=== PATIENT | female | born 2000 | race Caucasian/White ===

== ENCOUNTER 2020-08-13 23:54 | Emergency (ER) | payer MEDICAID, SELFPAY ==
[2020-08-14 00:03] VITALS: BP 130/89; PULSE 87; RESP 16; TEMP 36.8; O2SAT 99
[2020-08-14 00:56] LABS: Alanine Aminotransferase 15 U/L (4-35); Albumin Level 3.8 g/dL (3.5-5.1); Alkaline Phosphatase 69 U/L (38-126); Anion Gap 7 mmol/L (8-16); Aspartate Amino Transferase 19 U/L (14-36); Bilirubin,Total 0.2 mg/dL (0.2-1.3); Blood Urea Nitrogen 9 mg/dL (7-17); Calcium 9.2 mg/dL (8.4-10.2); Carbon Dioxide 24 mmol/L (22-30); Chloride 105 mmol/L (98-107); Estimated Glomerular Filt Rate > 60; Glucose 90 mg/dL (65-105); Potassium 3.8 mmol/L (3.4-5.0); Sodium 136 mmol/L (137-145)
[2020-08-14 01:07] LABS: Basophils Percent Auto 0.2 % (0.2-1.2); Eosinophils Absolute Auto 0.1 K/mm3 (0-0.3); Eosinophils Percent Auto 1.2 % (0-4.4); Hematocrit 37.9 % (37.0-47.0); Immature Granulocyte Absolute 0.03 K/mm3 (0.00-0.031); Immature Granulocyte Percent A 0.3 % (0-0.5); Lymphocytes Absolute Auto 2.68 K/mm3 (0.9-3.2); Lymphocytes Percent Auto 28.4 % (18.3-44.2); Mean Corpuscular HGB Conc 34.3 g/dl (32-36); Mean Corpuscular Hemoglobin 31.4 pg (26-34); Mean Corpuscular Volume 91.5 fl (80-100); Mean Platelet Volume 10.5 fl (7.4-10.4); Monocytes Absolute Auto 0.6 K/mm3 (0.1-0.6); Monocytes Percent Auto 5.9 % (2.6-8.5); Neutrophils Absolute Auto 6.1 K/mm3 (1.3-6.7); Platelet Count Result 242 k/mm3 (150-375); Red Blood Count 4.14 M/mm3 (4.2-5.4); Red Cell Distribution Width 12.8 % (11.5-14.5); White Blood Count 9.5 K/mm3 (4.5-10.0)
[2020-08-14 01:51] LABS: Add Urine Microscopic? NO; Appearance Urine Clear (Clear); Bilirubin Urine Negative (Negative); Blood Urine Negative (Negative); Color Urine Yellow (Yellow); Glucose Urine UA Negative (Negative); Ketones Urine Negative (Negative); Leukocyte Esterase Ur Negative LEU/UL (Negative); Nitrate Urine Negative (Negative); Protein Urine Negative (Negative); Specific Grav Ur 1.023 (1.001-1.035); Urobilinogen Urine Negative mg/dL (<2.0)
--- NOTE | 2020-08-14 02:30 | ED.FEMALEGU ---
HPI - Female Genitourinary General Chief complaint: Vaginal Bleeding Stated complaint: preg, vag bleeding, abd pain Time Seen by Provider: 08/14/20 00:41 History of Present Illness HPI Narrative: Patient is a 20-year-old female who is a G1, P0 who presents to the ER with pain behind her umbilicus and some slight vaginal bleeding beginning this evening. Reports she is 14 weeks . She had received care in [place] and had genetic screening as well as ultrasounds that showed a normal IUP. She reports she just moved here and has yet to establish care. Reports no previous complications in her . She does report that she had had sexual intercourse this evening prior to the bleeding. Related Data Home Medications Medication Instructions Recorded Confirmed famotidine 20 mg PO DAILY 08/14/20 08/14/20 levothyroxine 100 mcg PO DAILY 08/14/20 08/14/20 Allergies Allergy/AdvReac Type Severity Reaction Status Date / Time amoxicillin [From Amoxil] Allergy Hives Verified 08/14/20 00:07 Review of Systems Review of Systems: All systems reviewed & are unremarkable except as noted in HPI and below Constitutional: Constitutional: Denies chills Comments: No fevers Gastrointestinal: Gastrointestinal: Reports abdominal pain, Denies nausea and Denies vomiting Genitourinary: Genitourinary: Reports abnormal vaginal bleeding, Denies dysuria and Denies vaginal discharge Musculoskeletal: Musculoskeletal: Denies back pain PMFSH Past Medical History Medical History (Updated 08/14/20 @ 03:34 by Thom Matthews MD) Healthy female adult Surgical History Surgical History (Updated 08/14/20 @ 02:30 by Thom Matthews MD) History of tonsillectomy Social History Social History (Updated 08/14/20 @ 02:30 by Thom Matthews MD) Smoking status: Never smoker Exam Narrative: Exam Narrative: GENERAL: Well-appearing, well-nourished, and in no acute distress. HEAD: Normocephalic, atraumatic. CHEST: Clear to auscultation. No respiratory distress. HEART: Regular rate and rhythm. Normal peripheral pulses. ABDOMEN: Soft, nontender, nondistended. : Normal-appearing external genitalia, no vaginal bleeding within the vaginal vault, scant discharge, normal-appearing cervical os and cervix that is closed. No tenderness. EXTREMITIES: Normal range of motion. No edema. SKIN: Warm, dry, no rash. NEURO: Alert and oriented x3. Course Course Emergency Course: Patient with dopplerable heart tones. Unremarkable pelvic exam. Bleeding likely related to sexual intercourse earlier in the day. Discussed case with on-call OB who recommends close follow-up. Patient verbalized understanding. Vital Signs Vital signs: Vital Signs Temperature 98.3 F 08/14/20 00:03 Pulse Rate 87 08/14/20 00:03 Respiratory Rate 16 08/14/20 00:03 Blood Pressure 130/89 08/14/20 00:03 Pulse Oximetry 99 08/14/20 00:03 Temperature 98.3 F 08/14/20 00:03 Pulse Rate 87 08/14/20 00:03 Respiratory Rate 16 08/14/20 00:03 Blood Pressure 130/89 08/14/20 00:03 Pulse Oximetry 99 08/14/20 00:03 MDM - Female Genitourinary Lab Data Result diagrams: 08/14/20 00:33 08/14/20 00:33 Labs: Lab Results 08/14/20 08/14/20 08/14/20 Range/Units 00:33 00:33 01:17 WBC 9.5 (4.5-10.0) K/mm3 RBC 4.14 L (4.2-5.4) M/mm3 Hgb 13.0 (12.0-15.0) g/dL Hct 37.9 (37.0-47.0) % MCV 91.5 (80-100) fl MCH 31.4 (26-34) pg MCHC 34.3 (32-36) g/dl RDW 12.8 (11.5-14.5) % Plt Count 242 (150-375) k/mm3 MPV 10.5 H (7.4-10.4) fl Immature Gran % (Auto) 0.3 (0-0.5) % Neut % (Auto) 64.0 (45.5-73.1) % Lymph % (Auto) 28.4 (18.3-44.2) % [place] % (Auto) 5.9 (2.6-8.5) % Eos % (Auto) 1.2 (0-4.4) % Baso % (Auto) 0.2 (0.2-1.2) % Lymph # (Auto) 2.68 (0.9-3.2) K/mm3 [place] # (Auto) 0.6 (0.1-0.6) K/mm3 Eos # (Auto) 0.1 (0-0.3) K/mm
[2020-08-14 03:41] VITALS: BP 143/86; PULSE 82; RESP 18; TEMP 36.6; O2SAT 97
== END 2020-08-14 03:42 | disposition home or self-care (01) ==
PROVIDERS: Emergency Medicine; Emergency Provider Emergency Medicine
DX: O20.9 Hemorrhage in early pregnancy, unspecified (principal); Z3A.14 14 weeks gestation of pregnancy
CPT/HCPCS: 36415; 80053; 81003; 85025; 85461; 99284

== ENCOUNTER 2020-10-12 19:01 | Emergency (ER) | payer OTHER, SELFPAY ==
--- NOTE | 2020-10-12 19:19 | ED.URI ---
HPI - URI/Sore Throat General Chief Complaint: Upper Respiratory Infection Stated Complaint: Congestion Time Seen by Provider: 10/12/20 19:19 Source: patient Mode of arrival: ambulatory Limitations: no limitations History of Present Illness HPI Narrative: Kym Morgan is a 20 yo female who is a G1Po with complaints of sinus congestion and coughing up mucus that is worsened over the week. On Thursday she was tested at [facility] for Covid with a rapid test which was negative, symptoms had started on Thursday. Patient is currently 24 weeks . No loss of smell or taste. will test for covid, flu, pt states that although using TheraFlu, Flonase, Sudafed, Tylenol; to continue to get worse and she has pain in her maxillary sinuses Related Data Home Medications Medication Instructions Recorded Confirmed famotidine 20 mg PO DAILY 08/14/20 08/14/20 levothyroxine 100 mcg PO DAILY 08/14/20 08/14/20 10/12/20 Allergies Allergy/AdvReac Type Severity Reaction Status Date / Time amoxicillin [From Amoxil] Allergy Hives Verified 08/14/20 00:07 Review of Systems Review of Systems: Narrative: CONSTITUTIONAL: Denies fever, chills, sweats. EYES: Denies visual changes, redness, discharge. ENT:has rhinorrhea, congestion, no sore throat, otalgia. CARDIOVASCULAR: Denies chest pain, palpitations, edema. RESPIRATORY: Denies dyspnea, wheezing, has cough GASTROINTESTINAL: Denies abdominal pain, nausea, vomiting, diarrhea. GENITOURINARY: Denies dysuria, hematuria, abnormal discharge SKIN: Denies rash or itching. NEUROLOGIC: Denies numbness, or focal weakness. PSYCHIATRIC: Denies anxiety or depression. [facility] Past Medical History Medical History (Updated 10/12/20 @ 19:50 by Charu Hernandes CNP) Healthy female adult Surgical History Surgical History History of tonsillectomy Family History Family History Father Hypertension Other Diabetes mellitus Social History Social History Smoking status: Never smoker Comments At time of signature, I agree with nursing past medical, surgical, social and family history. There is no relevant family history pertinent to the presenting complaint. Exam Narrative: Exam Narrative: GENERAL: This is a well-nourished, well-developed patient, in mild distress. HEAD: normocephalic, atraumatic. Mild tenderness across frontal and maxillary sinus EYES: Sclera clear/white. Vision is grossly intact. EARS: External ears normal, auditory canals clear and without drainage, TMs normal without perforation. Hearing grossly intact. NOSE: External nose normal with nasal discharge, nares with redness, has rhinorrhea. THROAT: Mucous membranes moist, posterior pharynx erythema with no exudate no edema; patient has already had tonsillectomy NECK: Neck supple, non-tender CARDIOVASCULAR: Regular rate and rhythm without murmurs, gallops, or rubs. RESPIRATORY: Clear to auscultation. Breath sounds equal bilaterally. No wheezes, rales, or rhonchi. GASTROINTESTINAL: Abdomen soft, abdomen distended suspect patient is SKIN: warm, intact with no suspicious lesions or rash, good texture and turgor. NEURO: awake, alert, and oriented to person, place and time. There were no obvious focal neurologic abnormalities. Steady gait EXTREMITIES: Normal range of motion. BACK: Nontender without deformity Course Course Emergency Course: [facility] complaints of upper respiratory symptoms including a cough. She was tested for Covid on Thursday on the first day of her symptoms and that was negative is returned on day 5 with increasing symptoms and increased congestion, he has productive cough, states when she bends over that her head is hurting her Rapid Covid done- negative Flu test done- negative Plan : treat patient with cefdin
[2020-10-12 19:25] VITALS: BP 113/73; PULSE 71; RESP 18; TEMP 36.5; O2SAT 100
== END 2020-10-12 19:55 | disposition home or self-care (01) ==
PROVIDERS: Emergency Provider Nurse Practitioner
DX: O99.512 Diseases of the respiratory system complicating pregnancy, second trimester (principal); J06.9 Acute upper respiratory infection, unspecified; J01.00 Acute maxillary sinusitis, unspecified; Z20.822 Contact with and (suspected) exposure to COVID-19
CPT/HCPCS: 87426; 87804; 99213; C9803; G0463

== ENCOUNTER 2020-12-09 17:36 | Observation (INO) | payer OTHER, SELFPAY ==
--- NOTE | 2020-12-09 17:36 | OBADM ---
This patient, Kym Morgan, admitted to the OB room OB Post 115 for observation. Patient/family oriented to hospital policies and general routines including ID bracelet, bed and alarms, visiting hours, pain management, procedures, bathroom and other care routines, personal items, smoking policy, room service/diet, and visiting hours. Patient/Family are encouraged to report perceived risks to care and to ask questions if they do not understand what they are told or what they should do.
[2020-12-09 18:35] VITALS: BP 135/85; PULSE 89; RESP 18; TEMP 36.6
--- NOTE | 2020-12-12 07:24 | PM.OBTRLD ---
OB - Triage/Final Diagnosis Visit Information Date of evaluation: 12/09/20 Reason for evaluation: decreased movement Comments/Additional reasons for admission: I have assessed the risk for this patient, Kym Han Morgan, and determined that she would benefit from observation care.
== END 2020-12-09 19:15 | disposition home or self-care (01) ==
PROVIDERS: Admitting Provider Student in an Organized Health Care Education/Training Program; Visit Provider Student in an Organized Health Care Education/Training Program
DX: O36.8190 Decreased fetal movements, unspecified trimester, not applicable or unspecified (principal); Z3A.00 Weeks of gestation of pregnancy not specified
CPT/HCPCS: G0378; G0379

== ENCOUNTER 2021-01-18 23:16 | Observation (INO) | payer OTHER, SELFPAY ==
[2021-01-19] VITALS (8 sets, daily range): BP systolic 132–145; BP diastolic 69–94; PULSE 64–80; BMI 46.9
[2021-01-19 01:38] LABS: Basophils Percent Auto 0.2 % (0.2-1.2); Eosinophils Percent Auto 0.3 % (0-4.4); Hematocrit 36.9 % (37.0-47.0); Hemoglobin 12.6 g/dL (12.0-15.0); Immature Granulocyte Absolute 0.05 K/mm3 (0.00-0.031); Immature Granulocyte Percent A 0.4 % (0-0.5); Lymphocytes Absolute Auto 2.87 K/mm3 (0.9-3.2); Lymphocytes Percent Auto 22.2 % (18.3-44.2); Mean Corpuscular HGB Conc 34.1 g/dl (32-36); Mean Corpuscular Volume 90.7 fl (80-100); Monocytes Absolute Auto 0.8 K/mm3 (0.1-0.6); Monocytes Percent Auto 6.3 % (2.6-8.5); Neutrophils Absolute Auto 9.1 K/mm3 (1.3-6.7); Neutrophils Percent Auto 70.6 % (45.5-73.1); Platelet Count Result 210 k/mm3 (150-375); Red Blood Count 4.07 M/mm3 (4.2-5.4); Red Cell Distribution Width 13.9 % (11.5-14.5); White Blood Count 12.9 K/mm3 (4.5-10.0)
[2021-01-19 01:45] LABS: Add Urine Microscopic? YES; Appearance Urine Clear (Clear); Bilirubin Urine Negative (Negative); Blood Urine Negative (Negative); Color Urine Yellow (Yellow); Creatinine Urine 156.5 mg/dL; Glucose Urine UA Negative (Negative); Ketones Urine Negative (Negative); Leukocyte Esterase Ur Negative LEU/UL (NEGATIVE); Mucus Urine Rare /lpf; Nitrate Urine Negative (Negative); Protein Urine 2+ mg/dL (Negative); RBC Urine 0-2 /hpf (0-2); Specific Grav Ur 1.025 (1.001-1.035); Squamous Epithelial Cell Urine Occasional /hpf (Few); Total Protein Urine Random 21 mg/dL; Ur Ttl Prot Creatinine Ratio 0.13 mg/mg (0-0.20); Urobilinogen Urine Negative mg/dL (<2.0); WBC Urine 0-3 /hpf (0-3)
[2021-01-19 01:48] LABS: Alanine Aminotransferase 8 U/L (4-35); Albumin Level 3.6 g/dL (3.5-5.1); Alkaline Phosphatase 99 U/L (38-126); Anion Gap 6 mmol/L (8-16); Aspartate Amino Transferase 18 U/L (14-36); Bilirubin,Total 0.1 mg/dL (0.2-1.3); Blood Urea Nitrogen 13 mg/dL (7-17); Calcium 9.1 mg/dL (8.4-10.2); Carbon Dioxide 20 mmol/L (22-30); Chloride 109 mmol/L (98-107); Estimated Glomerular Filt Rate > 60; Glucose 77 mg/dL (65-105); Potassium 3.7 mmol/L (3.4-5.0); Sodium 135 mmol/L (137-145); Uric Acid 4.8 mg/dL (2.5-7.5)
--- NOTE | 2021-01-19 01:55 | OBADM ---
This patient, Kym Morgan, admitted to the OB room Labor/Delivery/Recovery 105 for observation. Patient/family oriented to hospital policies and general routines including ID bracelet, bed and alarms, visiting hours, pain management, procedures, bathroom and other care routines, personal items, smoking policy, room service/diet, and visiting hours. Patient/Family are encouraged to report perceived risks to care and to ask questions if they do not understand what they are told or what they should do.
--- NOTE | 2021-01-23 21:31 | PM.OBTRLD ---
OB - Triage/Final Diagnosis Visit Information Comments/Additional reasons for admission: I have assessed the risk for this patient, Kym Morgan, and determined that she would benefit from observation care. Evaluation Laboratory results: Laboratory Tests 01/19/21 01/19/21 01/19/21 01:21 01:21 01:21 WBC 12.9 H RBC 4.07 L Hgb 12.6 Hct 36.9 L MCV 90.7 MCH 31.0 MCHC 34.1 RDW 13.9 Plt Count 210 MPV 12.0 H Immature Gran % (Auto) 0.4 Neut % (Auto) 70.6 Lymph % (Auto) 22.2 Gregory % (Auto) 6.3 Eos % (Auto) 0.3 Baso % (Auto) 0.2 Lymph # (Auto) 2.87 Gregory # (Auto) 0.8 H Eos # (Auto) 0.0 Baso # (Auto) 0.0 Abs Immat Gran (auto) 0.05 H Absolute Neuts (auto) 9.1 H Absolute Nucleated RBC 0.0 Nucleated RBC % 0.0 Sodium Potassium Chloride Carbon Dioxide Anion Gap BUN Creatinine Estim Creat Clear Calc Estimated GFR Glucose Uric Acid Calcium Total Bilirubin AST ALT Alkaline Phosphatase Total Protein Albumin Urine Color Yellow Urine Appearance Clear Urine pH 6.0 Ur Specific [place] 1.025 Urine Protein 2+ H Urine Glucose (UA) Negative Urine Ketones Negative Ur Blood (Man) Negative Urine Nitrate Negative Urine Bilirubin Negative Urine Urobilinogen Negative Ur Leukocyte Esterase Negative Urine RBC 0-2 Urine WBC 0-3 Ur Squamous Epith Cells Occasional Urine Mucus Rare U Random Total Protein 21 Urine Creatinine 156.5 Protein/Creat Ratio 2 0.13 01/19/21 01:21 WBC RBC Hgb Hct MCV MCH MCHC RDW Plt Count MPV Immature Gran % (Auto) Neut % (Auto) Lymph % (Auto) Gregory % (Auto) Eos % (Auto) Baso % (Auto) Lymph # (Auto) Gregory # (Auto) Eos # (Auto) Baso # (Auto) Abs Immat Gran (auto) Absolute Neuts (auto) Absolute Nucleated RBC Nucleated RBC % Sodium 135 L Potassium 3.7 Chloride 109 H Carbon Dioxide 20 L Anion Gap 6 L BUN 13 Creatinine 0.50 L Estim Creat Clear Calc Not Reportable Estimated GFR > 60 Glucose 77 Uric Acid 4.8 Calcium 9.1 Total Bilirubin 0.1 L AST 18 ALT 8 Alkaline Phosphatase 99 Total Protein 7.0 Albumin 3.6 Urine Color Urine Appearance Urine pH Ur Specific [place] Urine Protein Urine Glucose (UA) Urine Ketones Ur Blood (Man) Urine Nitrate Urine Bilirubin Urine Urobilinogen Ur Leukocyte Esterase Urine RBC Urine WBC Ur Squamous Epith Cells Urine Mucus U Random Total Protein Urine Creatinine Protein/Creat Ratio 2 Final Diagnosis (1) Vaginal discharge during : Code(s): O26.899 - Other specified related conditions, unspecified trimester; N89.8 - Other specified noninflammatory disorders of vagina Status: Acute
== END 2021-01-19 03:03 | disposition home or self-care (01) ==
PROVIDERS: Admitting Provider Obstetrics & Gynecology; Visit Provider Obstetrics & Gynecology
DX: O26.893 Other specified pregnancy related conditions, third trimester (principal); N89.8 Other specified noninflammatory disorders of vagina; Z3A.37 37 weeks gestation of pregnancy
CPT/HCPCS: 36415; 80053; 81001; 82570; 84112; 84156; 84550; 85025; 87077; 87086; 87088; 87186; A9270; G0378; G0379

== ENCOUNTER 2021-01-24 11:48 | Outpatient (RCR) | payer OTHER, SELFPAY ==
[2021-01-17 12:55] VITALS: BP 136/93
[2021-01-24 12:33] VITALS: BP 135/82; PULSE 76
[2021-01-24 12:42] LABS: Basophils Percent Auto 0.2 % (0.2-1.2); Eosinophils Percent Auto 0.3 % (0-4.4); Hematocrit 35.5 % (37.0-47.0); Hemoglobin 12.1 g/dL (12.0-15.0); Immature Granulocyte Absolute 0.04 K/mm3 (0.00-0.031); Immature Granulocyte Percent A 0.4 % (0-0.5); Lymphocytes Absolute Auto 1.91 K/mm3 (0.9-3.2); Lymphocytes Percent Auto 20.8 % (18.3-44.2); Mean Corpuscular HGB Conc 34.1 g/dl (32-36); Mean Corpuscular Hemoglobin 30.9 pg (26-34); Mean Corpuscular Volume 90.8 fl (80-100); Mean Platelet Volume 11.7 fl (7.4-10.4); Monocytes Absolute Auto 0.6 K/mm3 (0.1-0.6); Monocytes Percent Auto 6.1 % (2.6-8.5); Neutrophils Absolute Auto 6.6 K/mm3 (1.3-6.7); Neutrophils Percent Auto 72.2 % (45.5-73.1); Platelet Count Result 182 k/mm3 (150-375); Red Blood Count 3.91 M/mm3 (4.2-5.4); Red Cell Distribution Width 13.9 % (11.5-14.5); White Blood Count 9.2 K/mm3 (4.5-10.0)
[2021-01-24 12:45] VITALS: BP 134/81; PULSE 81
[2021-01-24 12:47] LABS: Add Urine Microscopic? YES; Appearance Urine Cloudy (Clear); Bacteria Urine Trace /hpf; Bilirubin Urine Negative (Negative); Blood Urine Negative (Negative); Color Urine Yellow (Yellow); Glucose Urine UA Negative (Negative); Ketones Urine Negative (Negative); Leukocyte Esterase Ur Negative LEU/UL (NEGATIVE); Mucus Urine Rare /lpf; Nitrate Urine Negative (Negative); Protein Urine 3+ mg/dL (Negative); Specific Grav Ur 1.023 (1.001-1.035); Squamous Epithelial Cell Urine Few /hpf (Few); Urobilinogen Urine Negative mg/dL (<2.0)
[2021-01-24 12:51] LABS: Alanine Aminotransferase 9 U/L (4-35); Albumin Level 3.2 g/dL (3.5-5.1); Alkaline Phosphatase 91 U/L (38-126); Anion Gap 6 mmol/L (8-16); Aspartate Amino Transferase 16 U/L (14-36); Bilirubin,Total < 0.1 mg/dL (0.2-1.3); Blood Urea Nitrogen 8 mg/dL (7-17); Calcium 8.5 mg/dL (8.4-10.2); Carbon Dioxide 21 mmol/L (22-30); Chloride 111 mmol/L (98-107); Estimated Glomerular Filt Rate > 60; Glucose 97 mg/dL (65-105); Potassium 3.6 mmol/L (3.4-5.0); Sodium 138 mmol/L (137-145); Uric Acid 5.2 mg/dL (2.5-7.5)
[2021-01-24 12:55] LABS: Creatinine Urine 178.8 mg/dL; Total Protein Urine Random 67 mg/dL; Ur Ttl Prot Creatinine Ratio 0.37 mg/mg (0-0.20)
[2021-01-24 13:01] VITALS: BP 132/85; PULSE 69
[2021-01-24 13:06] VITALS: BP 132/85; PULSE 69
== END 2021-01-30 07:47 | disposition home or self-care (01) ==
LOC: ANHOBOP 11:48
PROVIDERS: Visit Provider Student in an Organized Health Care Education/Training Program
DX: O36.5930 Maternal care for other known or suspected poor fetal growth, third trimester, not applicable or unspecified (principal); Z3A.37 37 weeks gestation of pregnancy; Z3A.38 38 weeks gestation of pregnancy
CPT/HCPCS: 36415; 59025; 80053; 81001; 82570; 84156; 84550; 85025

== ENCOUNTER 2021-01-28 16:44 | Inpatient (IN) | payer OTHER, SELFPAY ==
[2021-01-28] VITALS (18 sets, daily range): BP systolic 117–157; BP diastolic 65–97; PULSE 51–82; TEMP 36.3–36.5; BMI 47.0
--- NOTE | 2021-01-28 16:44 | LDADM ---
This patient, Kym Morgan, was admitted to Labor/Delivery/Recovery 107 on 01/28/21 at 16:44. Plans for labor, pain management and were discussed with patient. Patient/family oriented to hospital policies and general routines including ID bracelet, bed and alarms, visiting hours, pain management, procedures, bathroom and other care routines, personal items, smoking policy, room service/diet and guest tray routines, security routines, and visiting hours. Patient/Family are encouraged to report perceived risks to care and to ask questions if they do not understand what they are told or what they should do. See OBIX for further documentation.
[2021-01-28 17:40] LABS: Basophils Percent Auto 0.2 % (0.2-1.2); Eosinophils Percent Auto 0.2 % (0-4.4); Hemoglobin 12.2 g/dL (12.0-15.0); Immature Granulocyte Absolute 0.05 K/mm3 (0.00-0.031); Immature Granulocyte Percent A 0.4 % (0-0.5); Lymphocytes Absolute Auto 2.38 K/mm3 (0.9-3.2); Lymphocytes Percent Auto 21.2 % (18.3-44.2); Mean Corpuscular HGB Conc 33.9 g/dl (32-36); Mean Corpuscular Hemoglobin 30.8 pg (26-34); Mean Corpuscular Volume 90.9 fl (80-100); Mean Platelet Volume 11.5 fl (7.4-10.4); Monocytes Absolute Auto 0.8 K/mm3 (0.1-0.6); Monocytes Percent Auto 6.9 % (2.6-8.5); Neutrophils Percent Auto 71.1 % (45.5-73.1); Platelet Count Result 203 k/mm3 (150-375); Red Blood Count 3.96 M/mm3 (4.2-5.4); Red Cell Distribution Width 13.9 % (11.5-14.5); White Blood Count 11.2 K/mm3 (4.5-10.0)
[2021-01-28 17:54] LABS: Alanine Aminotransferase 8 U/L (4-35); Albumin Level 3.3 g/dL (3.5-5.1); Alkaline Phosphatase 104 U/L (38-126); Anion Gap 5 mmol/L (8-16); Aspartate Amino Transferase 19 U/L (14-36); Bilirubin,Total < 0.1 mg/dL (0.2-1.3); Blood Urea Nitrogen 11 mg/dL (7-17); Calcium 8.7 mg/dL (8.4-10.2); Carbon Dioxide 21 mmol/L (22-30); Chloride 111 mmol/L (98-107); Estimated Glomerular Filt Rate > 60; Glucose 75 mg/dL (65-105); Potassium 3.7 mmol/L (3.4-5.0); Sodium 137 mmol/L (137-145); Uric Acid 5.6 mg/dL (2.5-7.5)
[2021-01-28 18:34] LABS: HIV 1/2 Ab P24 Ag Result Negative (Negative)
[2021-01-28] MEDS: miSOPROStol 25 MCG TABLET VAGINAL ×2 (18:48→22:55)
[2021-01-28] MEDS: LACTATED RINGERS 1,000 ML 125 ML IV CONT (18:48)
[2021-01-29] VITALS (246 sets, daily range): BP systolic 99–162; BP diastolic 52–117; PULSE 47–209; RESP 18; TEMP 36.1–37.1; O2SAT 80–100
[2021-01-29] MEDS: ONDANSETRON INJ 4 MG/2 ML VIAL IV PUSH (00:26)
[2021-01-29] MEDS: fentaNYL CITRATE INJ (*CRX) 100 MCG/2 ML VIAL 50 MCG IV PUSH ×2 (00:32)
[2021-01-29] MEDS: LACTATED RINGERS 1,000 ML 125 ML IV CONT ×2 (01:14→06:16)
--- NOTE | 2021-01-29 01:44 | WPDANESEPPF ---
Anes - Initial Pre Proc Eval Procedure: labor epidural Date/Time: 01/29/21 01:44 Surgeon: Leonel Garcia MD Pre Op Diagnosis: labor pain Pre Op Diagnosis: Induction of Labor/HIP Patient Data Age: 20 Gender: F Height: 1.47 m Weight: 102 kg Last Vital Signs Temp 36.1 C L 01/29/21 01:39 Pulse 67 01/29/21 01:42 BP 129/77 01/29/21 01:42 Pulse Ox 98 01/29/21 01:38 Allergies Allergy/AdvReac Type Severity Reaction Status Date / Time amoxicillin [From Amoxil] Allergy Severe Hives Verified 01/28/21 17:34 penicillin G Allergy Severe Anaphylaxis Verified 01/28/21 17:34 Home Medications Medication Instructions Recorded Confirmed Type levothyroxine 100 mcg PO DAILY 08/14/20 01/28/21 History 1 tablet PO DAILY 10/12/20 01/28/21 History Tylenol PM 1 tablet PO HS PRN 12/09/20 01/28/21 History ondansetron HCl 4 mg PO Q6H PRN 12/09/20 01/28/21 History omeprazole 20 mg PO DAILY 01/08/21 01/28/21 History Laboratory Tests 01/28/21 01/28/21 01/28/21 17:07 17:07 17:07 WBC 11.2 K/mm3 H K/mm3 (4.5-10.0) RBC 3.96 M/mm3 L M/mm3 (4.2-5.4) Hgb 12.2 g/dL g/dL (12.0-15.0) Hct 36.0 % L % (37.0-47.0) MCV 90.9 fl fl (80-100) MCH 30.8 pg pg (26-34) MCHC 33.9 g/dl g/dl (32-36) RDW 13.9 % % (11.5-14.5) Plt Count 203 k/mm3 k/mm3 (150-375) MPV 11.5 fl H fl (7.4-10.4) Immature Gran % (Auto) 0.4 % % (0-0.5) Neut % (Auto) 71.1 % % (45.5-73.1) Lymph % (Auto) 21.2 % % (18.3-44.2) [place] % (Auto) 6.9 % % (2.6-8.5) Eos % (Auto) 0.2 % % (0-4.4) Baso % (Auto) 0.2 % % (0.2-1.2) Lymph # (Auto) 2.38 K/mm3 K/mm3 (0.9-3.2) [place] # (Auto) 0.8 K/mm3 H K/mm3 (0.1-0.6) Eos # (Auto) 0.0 K/mm3 K/mm3 (0-0.3) Baso # (Auto) 0.0 K/mm3 K/mm3 (0.0-0.1) Abs Immat Gran (auto) 0.05 K/mm3 H K/mm3 (0.00-0.031) Absolute Neuts (auto) 8.0 K/mm3 H K/mm3 (1.3-6.7) Absolute Nucleated RBC 0.0 K/mm3 K/mm3 (0.0-0.012) Nucleated RBC % 0.0 % % (0.0-0.2) Sodium Potassium Chloride Carbon Dioxide Anion Gap BUN Creatinine Estim Creat Clear Calc Estimated GFR Glucose Uric Acid Cancelled Calcium Total Bilirubin AST ALT Alkaline Phosphatase Total Protein Albumin RPR Pending HIV 1&2 Ab/P24 Ag 4thGn Blood Type Antibody Screen 01/28/21 01/28/21 01/28/21 17:07 17:07 17:07 WBC RBC Hgb Hct MCV MCH MCHC RDW Plt Count MPV Immature Gran % (Auto) Neut % (Auto) Lymph % (Auto) [place] % (Auto) Eos % (Auto) Baso % (Auto) Lymph # (Auto) [place] # (Auto) Eos # (Auto) Baso # (Auto) Abs Immat Gran (auto) Absolute Neuts (auto) Absolute Nucleated RBC Nucleated RBC % Sodium 137 mmol/L mmol/L (137-145) Potassium 3.7 mmol/L mmol/L (3.4-5.0) Chloride 111 mmol/L H mmol/L (98-107) Carbon Dioxide 21 mmol/L L mmol/L (22-30) Anion Gap 5 mmol/L L mmol/L (8-16) BUN 11 mg/dL mg/dL (7-17) Creatinine 0.50 mg/dL L mg/dL (0.7-1.0) Estim Creat Clear Calc Not Reportable Estimated GFR > 60 (59 - ) Glucose 75 mg/dL mg/dL (65-105) Uric Acid 5.6 mg/dL mg/dL (2.5-7.5) Calcium 8.7 mg/dL mg/dL (8.4-10.2) Total Bilirubin <
[2021-01-29] MEDS: SODIUM CHLORIDE 0.9% IV 300 ML 600 ML I-UTERINE (04:41)
[2021-01-29] MEDS: CALCIUM CARBONATE (TUMS) 500 MG (200 MG ELEMENTAL) PO ×2 (06:18→12:53)
[2021-01-29] MEDS: diphenhydrAMINE HCl INJ 50 MG/ML VIAL 25 MG IV PUSH (06:49)
[2021-01-29] MEDS: LEVOTHYROXINE SODIUM 100 MCG TABLET PO (07:18)
[2021-01-29 07:29] LABS: Rapid Plasma Reagin Non-Reactive (NonReactive)
[2021-01-29] MEDS: OXYTOCIN 30 UNITS/NS 500 ML 30 UNITS/500 ML BAG 6 UNITS IV CONT (11:08)
--- NOTE | 2021-01-29 13:37 | WPDHPUPDATE1 ---
History and Physical Update Update Date/Time: 01/29/21 13:37 20 yo who presents for IOL for preeclampsia. Pt was found to have elevated BP in office. She complained of increased swelling, scotoma and overal malaise. urine protein creatinine ration returned elevated giving her the diagnosis of Preeclampsia. Her has also been complicated by rubella non-immune status, hypothyroidism on synthroid and GERD. History and Physical has been reviewed, including an updated exam of the patient. There are NO changes in the patient's condition. Risks, benefits, and alternatives have been discussed and questions answered. Patient agrees to proceed with procedure. A?P: 20 yo who presents for IOL admit to L&D routine admission orders BP wnl on admission continue to monitor BP PIH labs repeated Rh+ GBS +, PCN allergy, sensitive to vancomycin FHT cat 1 no contractions on toco plan for cytotec IOL will augment with Pitocin or AROM as necessary
[2021-01-29] MEDS: OXYTOCIN 30 UNITS/NS 500 ML 30 UNITS/500 ML BAG 125 UNITS IV CONT (15:25)
--- NOTE | 2021-01-29 15:40 | PM.OBPRVD ---
OB - Delivery Note Procedure Procedure: Patient pushed for a spontaneous vaginal delivery. The fetus was delivered atraumatically and placed on the maternal abdomen. The cord was clamped and cut after 1 minute of life. The cord was double clamped and cut and a segment of cord was collected for cord gases. Cord blood was collected for blood type and Coomb's testing. The placenta delivered spontaneously and was noted to be intact. The perineum was inspected and there was a 1st degree perineal laceration and right labial laceration. The lacerations were repaired with 2-0 vicryl in the usual fashion. The uterus was firm and good hemostasis was noted. The patient and fetus were stable in the delivery room. events: Ectopic Intrapartal events: Mild Preeclampsia Induction method: per misoprostol protocol Delivery augmentation: pitocin Delivery monitor: external FHT Route of delivery: Episiotomy description: None Delivery repair: vicryl Specimen: No Quantitative Blood Loss (ml): 250 Anesthesia type: Epidural Disposition: floor () Complications: No immediate complications Baby Date of : 01/29/21 Time of : 14:49 Weeks of gestation at delivery: 38 gender: Female Weight (pounds): 5 Weight (ounces): 7 presentation: vertex position: Right Occiput Anterior Placenta delivery description: Spontaneous cord vessel description: 3 Vessels score one minute: 3 score five minutes: 6 score ten minutes: 7
[2021-01-29] MEDS: WITCH HAZEL 40 PADS 1 PAD TOPICAL (16:59)
--- NOTE | 2021-01-29 17:28 | OBPPTRN ---
Patient transferred to post room # 292 via wheelchair. Support person present. Oriented to unit, room, information board, rooming in, admission packet and security measures. Patient verbalizes understanding.
[2021-01-29] MEDS: IBUPROFEN 600 MG TABLET PO (18:14)
[2021-01-29] MEDS: ACETAMINOPHEN 325 MG TABLET 650 MG PO (18:47)
[2021-01-30] MEDS: IBUPROFEN 600 MG TABLET PO ×2 (00:07→05:50)
[2021-01-30] MEDS: ACETAMINOPHEN 325 MG TABLET 650 MG PO ×2 (01:47→09:16)
[2021-01-30 04:10] VITALS: BP 130/78; PULSE 59; RESP 18; TEMP 36.4; O2SAT 97
[2021-01-30 05:33] LABS: Hematocrit 31.7 % (37.0-47.0); Hemoglobin 10.6 g/dL (12.0-15.0)
[2021-01-30] MEDS: LEVOTHYROXINE SODIUM 100 MCG TABLET PO (05:50)
--- NOTE | 2021-01-30 07:00 | P.DS_ITS ---
DS: Admitting Diagnosis Admitting Diagnosis Admitting Diagnosis: intrauterine at term mild preeclampsia OB - DS: Summary OB Procedures : None OB Procedures Intrapartum: Spontaneous Vag Delivery OB Procedures: : None Status at Discharge Functional status at discharge: independent ambulation Overall status at discharge: patient is back to baseline Time Spent with Patient Time attestation: Total time spent providing and/or coordinating discharge services: Time spent: Less than 30 minutes Exam Const: General: comfortable and no acute distress Resp: Effort & Inspection: normal respiratory effort Auscultation: clear to auscultation bilaterally Cardio: Rate: regular rate GI: GI Palp: Yes Soft to palpation Auscultation: normal bowel sounds Other: Fundus firm below umbilicus Psych: Appearance: grossly normal Mental Status: mental status grossly normal Affect: normal affect DS: Data Data Completed and Pending Labs on day of discharge: Labs from last 24 hours 01/30/21 01/28/21 04:16 17:07 Hgb 10.6 L Hct 31.7 L RPR Non-reactive Discharge Plan Discharge Discharging Clinician: Leonel Garcia Patient Disposition: Home, Self-Care Activity: may shower and pelvic rest Diet: regular Patient Instructions: Antibiotic Form Stand Alone Forms: General Discharge Information Follow-up/Referrals: Leonel Garcia MD [Physician] - 4 Weeks Discharge Medications: New ibuprofen 600 mg Tablet 600 mg PO Q6H PRN (Reason: Cramping) Qty: 30 RF: 0 acetaminophen [Mapap (acetaminophen)] 325 mg Tablet 650 mg PO Q6H PRN (Reason: Mild Pain (1-3) Or Headache) Qty: 30 RF: 0 Continued 1 tablet PO DAILY RF: 0 levothyroxine 100 mcg Capsule 100 mcg PO DAILY RF: 0 omeprazole 20 mg Tablet,Delayed Release (Dr/Ec) 20 mg PO DAILY RF: 0 ondansetron HCl 4 mg tablet 4 mg PO Q6H PRN (Reason: Nausea And Vomiting) RF: 0 Tylenol PM 1 tablet PO HS PRN (Reason: Sleep) RF: 0 Date of admission: 01/28/21 16:44 Primary Care Provider: PHYSICIAN,INSPECTOR [employer] Admitting Provider: Leonel Garcia Attending physician on admission: Leonel Garcia Condition: Stable
--- NOTE | 2021-01-30 08:00 | PC.NURSE ---
PT introductions made and plan of care discussed per post , pain management, breast pumping, baby transferred to [facility], daily care activities and pending discharge to home. PT verbalized understanding of such care. Education and instruction given via one to one discussion, mom baby care guide and demonstration. NO barriers to learning identified and both pt and spouse were the recipients of such instructions.
[2021-01-30 08:30] VITALS: BP 153/67; PULSE 58; RESP 16; TEMP 36.4; O2SAT 99
--- NOTE | 2021-01-30 09:00 | PC.NURSE ---
Consult with pt., mother has been set up with pumping due to transfer. Mother reports she pumped a few times and was frustrated she only pumped a few drops. Assured mother this is normal for the first few days, milk should transition in by day 3-4 and volume should increase. Stressed the importance of regular stimulation of 15 minutes every three hours during the day and every 4 during the night or 1 5 hour sleep period. Mother reports she did not have any difficulties or discomfort with pumping. Reviewed breast pump care and usage, pumping schedule, nipple care, and collection and storage of breast milk. Encouraged [id number] when infant is ready, breast massage and manual expression to stimulate supply. Assessed patient for correct flange size, placement and draw. Patient verbalizes and demonstrates understanding of instructions.
[2021-01-30] MEDS: PANTOPRAZOLE 40 MG TABLET PO (09:15)
[2021-01-30] MEDS: DOCUSATE SODIUM 100 MG CAPSULE PO (09:15)
[2021-01-30] MEDS: MULTIVIT/MIN/PREN/FOL AC/IRON TABLET 1 TAB PO (09:17)
[2021-01-30] MEDS: LANOLIN (LANSINOH) 7.5 GM CREAM 1 APPLIC TOPICAL (09:18)
--- NOTE | 2021-01-30 10:00 | PC.NURSE ---
Patient was given the opportunity to view the discharge video Mother & Baby Care, The First Two Weeks and to ask questions. Patient declined viewing the video and has been given the mother/baby guide for home reference. But pt did download the video to her phone.
[2021-01-30] MEDS: MEASLES,MUMPS,RUBELLA VACCINE 0.5 ML VIAL SUB-Q (10:30)
[2021-01-30] MEDS: TETANUS,DIPHTHERIA,AC PERTUSSIS ADULT (0.5 ML) BOOSTRIX IM (10:30)
--- NOTE | 2021-01-30 10:30 | PC.NURSE ---
PT received discharge instructions per protocol and verbalized understanding of such care.
--- NOTE | 2021-01-30 10:45 | PC.NURSE ---
PT discharged to home ambulatory accompanied by spouse and taken to waiting car. Follow up appts confirmed
--- NOTE | 2021-01-30 11:06 | WPDANLDPN2 ---
Anes-Prog Note L&D Date/Time: 01/30/21 11:06 Comfortable throughout: labor and delivery Neuraxial method: epidural Epidural/Spinal procedure site: clean & non-tender Neuro status: Neuro function grossly intact. Cardiovascular status: normal Respiratory status: normal Airway patency: baseline Mental status: baseline Post-Op hydration status: normal Vital Signs: Last Vital Signs Temp 36.4 C L 01/30/21 08:30 Pulse 58 L 01/30/21 08:30 Resp 16 01/30/21 08:30 BP 153/67 H 01/30/21 08:30 Pulse Ox 99 01/30/21 08:30 Pain score (VAS): 0 I/O: Intake & Output 01/29/21 01/30/21 01/30/21 23:59 07:59 15:59 Intake Total 1000 Output Total 48 Balance -48 1000 Post-procedural complaints: none Patient feedback: Patient satisfied with anesthetic care.
== END 2021-01-30 10:45 | disposition home or self-care (01) | DRG 560 ==
LOC: ANHLDR 16:50 → ANHOB2 01-29 17:34
PROVIDERS: Admitting Provider Student in an Organized Health Care Education/Training Program; Visit Provider Student in an Organized Health Care Education/Training Program
DX: O14.94 Unspecified pre-eclampsia, complicating childbirth (principal); O99.824 Streptococcus B carrier state complicating childbirth; O76 Abnormality in fetal heart rate and rhythm complicating labor and delivery; O70.0 First degree perineal laceration during delivery; Z3A.38 38 weeks gestation of pregnancy; Z37.0 Single live birth
CPT/HCPCS: 36415; 80053; 84112; 84550; 85014; 85018; 85025; 86592; 86703; 86850; 86900; 86901; 90710; 90715; A9270; G0432; J1200; J2405; J2590; J2795; J3010; J3370; J7030; J7120

== ENCOUNTER 2023-06-13 15:28 | Emergency (ER) | payer OTHER, SELFPAY ==
[2023-06-13 15:41] VITALS: BP 121/63; PULSE 70; RESP 16; TEMP 36.5; O2SAT 100
--- NOTE | 2023-06-13 15:52 | ED.URI ---
HPI - URI/Sore Throat General Chief Complaint: Upper Respiratory Infection Stated Complaint: headache,neck hurts,hurts to breathe Time Seen by Provider: 06/13/23 15:47 Source: patient and RN notes reviewed Mode of arrival: ambulatory Limitations: no limitations History of Present Illness HPI Narrative: Patient presents today with a 2 day history of headache, scratchy throat, and swollen glands. Denies fever, shortness of breath, cough. She has been taking tylenol at home with some relief. Currently rates her pain 6/10. History of asthma. She has not been using her albuterol inhaler more frequently than normal. positive for COVID. Related Data Home Medications Medication Instructions Recorded Confirmed levothyroxine 100 mcg capsule 100 mcg PO DAILY 08/14/20 06/13/23 amlodipine 5 mg tablet mg 06/13/23 baclofen 10 mg tablet mg 06/13/23 bupropion HCl 75 mg tablet mg PO 06/13/23 famotidine 40 mg tablet mg 06/13/23 trazodone 50 mg tablet mg 06/13/23 Allergies Allergy/AdvReac Type Severity Reaction Status Date / Time amoxicillin [From Amoxil] Allergy Severe Hives Verified 06/13/23 15:39 penicillin G Allergy Severe Anaphylaxis Verified 06/13/23 15:39 human papillomavirus Allergy Other Verified 06/13/23 15:46 vaccine, quadr [From Gardasil (PF)] ketorolac [From Toradol] Allergy Other Verified 06/13/23 15:46 Review of Systems Review of Systems: CONSTITUTIONAL: Denies body aches, fever, chills, or sweats. EYES: Denies visual changes, redness, or discharge. ENT: Denies rhinorrhea, congestion, sore throat, or otalgia.+ scratchy throat CARDIOVASCULAR: Denies chest pain, palpitations, or edema. RESPIRATORY: Denies cough or dyspnea. GASTROINTESTINAL: Denies abdominal pain, nausea, vomiting, or diarrhea. GENITOURINARY: Denies dysuria or hematuria. SKIN: Denies rash, itching, or wounds. MUSCULOSKELETAL: Denies back pain, joint pain, or myalgia. NEUROLOGIC: Denies numbness, tingling, or weakness.+ headache PSYCH: Denies depression or anxiety. FOR[facility]LY [facility] Past Medical History Medical History Asthma Hypothyroidism PIH ( induced hypertension) Surgical History Surgical History History of tonsillectomy Family History Family History Father Hypertension Bipolar 1 disorder Bradycardia Mother Hypertension Sibling Depression Social History Social History Smoking status: Never smoker Second hand tobacco smoke exposure: Yes Substance use: never Spiritual care concerns: No Comments At time of signature, I have reviewed and agree with nursing past medical, surgical, social and family history unless otherwise noted. Please see nursing chart for further information. There is no relevant family history pertinent to the presenting complaint Exam Narrative: GENERAL: Well-appearing, well-nourished, and in no acute distress. HEAD: Normocephalic, atraumatic. EYES: EOMI. No redness or drainage. Conjunctivae normal. ENT: Mucous membranes pink and moist. Nares clear. No rhinorrhea. TMs normal bilaterally. Throat normal with small amount of white postnasal drainage. Uvula midline. NECK: Normal AROM. Supple. No lymphadenopathy. CHEST: No respiratory distress. Clear to auscultation. HEART: Regular rate and rhythm. No murmur appreciated. Normal peripheral pulses. EXTREMITIES: Normal range of motion. No edema. SKIN: Warm, dry, no rash. Capillary refill normal. Normal skin turgor. NEURO: No focal deficits. Alert and oriented x3. Gait steady. PSYCH: Normal affect. No signs of depression or anxiety. Course Course Level of Care: Express Care Visit Vital Signs Vital signs: Vital Signs Temperature 97.7 F 06/13/23 15:41 Pulse Rate 7
== END 2023-06-13 16:21 | disposition home or self-care (01) ==
PROVIDERS: Emergency Provider Nurse Practitioner; PCP Nurse Practitioner Family
DX: B34.9 Viral infection, unspecified (principal); Z20.822 Contact with and (suspected) exposure to COVID-19; J45.909 Unspecified asthma, uncomplicated; E03.9 Hypothyroidism, unspecified
CPT/HCPCS: 87426; 99213; C9803; G0463

== ENCOUNTER 2023-08-29 10:52 | Emergency (ER) | payer OTHER, SELFPAY ==
--- NOTE | ~2023-08-29 | XR_ITS ---
EXAMINATION: XR chest 2V DATE: 08/29/2023 12:36 INDICATION: Right chest pain. TECHNIQUE: Frontal and lateral views of the chest were obtained. COMPARISON: None. FINDINGS: There is no pneumonia, pleural effusion, or pneumothorax. The heart size is normal. IMPRESSION: 1. No acute cardiopulmonary disease. Reviewed, dictated and finalized at location A. [facility] [employer]
--- NOTE | 2023-08-29 10:55 | ECG_ITS ---
Measurements Intervals [place] Rate: 86 P: 25 RI: 152 QRS: 44 QRSD: 86 T: 17 QT: 349 QTc: 418 Interpretive Statements SINUS RHYTHM NO PREVIOUS ECG AVAILABLE FOR COMPARISON Electronically Signed On 08-30-2023 14:33:53 [employer] by Kevin Fragoso M.D.
[2023-08-29 11:22] LABS: Basophils Percent Auto 0.1 % (0.2-1.2); Eosinophils Absolute Auto 0.1 K/mm3 (0-0.3); Eosinophils Percent Auto 0.7 % (0-4.4); Hematocrit 39.1 % (37.0-47.0); Hemoglobin 13.3 g/dL (12.0-15.0); Immature Granulocyte Absolute 0.02 K/mm3 (0.00-0.031); Immature Granulocyte Percent A 0.3 % (0-0.5); Lymphocytes Absolute Auto 1.84 K/mm3 (0.9-3.2); Lymphocytes Percent Auto 27.4 % (18.3-44.2); Mean Corpuscular Hemoglobin 31.5 pg (26-34); Mean Corpuscular Volume 92.7 fl (80-100); Mean Platelet Volume 10.1 fl (7.4-10.4); Monocytes Absolute Auto 0.3 K/mm3 (0.1-0.6); Monocytes Percent Auto 4.5 % (2.6-8.5); Neutrophils Absolute Auto 4.5 K/mm3 (1.3-6.7); Platelet Count Result 229 k/mm3 (150-375); Red Blood Count 4.22 M/mm3 (4.2-5.4); White Blood Count 6.7 K/mm3 (4.5-10.0)
[2023-08-29 11:32] LABS: Prothrombin Time 13.9 Seconds (11.1-14.7)
[2023-08-29 11:33] LABS: Alanine Aminotransferase 24 U/L (6-35); Albumin Level 4.2 g/dL (3.5-5.1); Alkaline Phosphatase 79 U/L (38-126); Anion Gap 8 mmol/L (8-16); Aspartate Amino Transferase 19 U/L (14-36); Bilirubin,Total 0.6 mg/dL (0.2-1.3); Blood Urea Nitrogen 10 mg/dL (7-17); Carbon Dioxide 25 mmol/L (22-30); Chloride 105 mmol/L (98-107); Estimated Glomerular Filt Rate > 60; Glucose 118 mg/dL (65-110); Lipase 70 U/L (23-300); Partial Thromboplastin Time 28.8 SECONDS (22.3-36.8); Potassium 3.6 mmol/L (3.4-5.0); Sodium 138 mmol/L (137-145)
[2023-08-29 11:44] LABS: Troponin I < 0.012 ng/mL (0.000-0.034)
--- NOTE | 2023-08-29 12:14 | ED.CHESTPAIN ---
HPI - Chest Pain General Chief Complaint: Chest Pain Stated Complaint: cp Time Seen by Provider: 08/29/23 11:59 History of Present Illness HPI narrative: patient is a 23-year-old female presenting with chest pain. Patient states that she is approximately 8 weeks . States that she woke this morning with right-sided chest pain that radiates into her back. States that it feels like an arrow is going straight through. It is worsened with movement and taking big breath. She denies shortness of breath. No leg swelling, cough, fevers. No abdominal pain, nausea vomiting, vaginal bleeding. Denies history of prior blood clots. Has not taken anything for pain. Related Data Home Medications Medication Instructions Recorded Confirmed levothyroxine 100 mcg capsule 100 mcg PO DAILY 08/14/20 06/13/23 amlodipine 5 mg tablet mg 06/13/23 baclofen 10 mg tablet mg 06/13/23 bupropion HCl 75 mg tablet mg PO 06/13/23 famotidine 40 mg tablet mg 06/13/23 trazodone 50 mg tablet mg 06/13/23 Allergies Allergy/AdvReac Type Severity Reaction Status Date / Time amoxicillin [From Amoxil] Allergy Severe Hives Verified 08/29/23 12:01 penicillin G Allergy Severe Anaphylaxis Verified 08/29/23 12:01 human papillomavirus Allergy Other Verified 08/29/23 12:01 vaccine, quadr [From Gardasil (PF)] ketorolac [From Toradol] Allergy Other Verified 08/29/23 12:01 Review of Systems Review of Systems: All systems reviewed & are unremarkable except as noted in HPI and below PMFSH Past Medical History Medical History Asthma Hypothyroidism PIH ( induced hypertension) Surgical History Surgical History History of tonsillectomy Family History Family History Father Hypertension Bipolar 1 disorder Bradycardia Mother Hypertension Sibling Depression Social History Social History Smoking status: Never smoker Second hand tobacco smoke exposure: Yes Substance use: never Spiritual care concerns: No Exam Narrative: GENERAL: Well-appearing, well-nourished, and in no acute distress. HEAD: Normocephalic, atraumatic. EYES: PERRLA and EOMI. ENT: Grossly unremarkable NECK: Supple. CHEST: Clear to auscultation. No respiratory distress. tenderness w/palpation lower right chest wall HEART: Regular rate and rhythm. No murmur heard. ABDOMEN: Soft, nontender, nondistended BACK: no midline tenderness; tender over right lateral upper back EXTREMITIES: Normal range of motion. No edema. SKIN: Warm, dry, no rash. NEURO: No focal deficits. Alert and oriented x3. PSYCH: Normal mood and affect. Course Vital Signs Vital signs: Vital Signs Oxygen Delivery Room Air 08/29/23 11:50 Pulse Rate 72 08/29/23 14:25 Respiratory Rate 16 08/29/23 14:25 Blood Pressure 104/58 L 08/29/23 14:25 Pulse Oximetry 100 08/29/23 14:25 Oxygen Delivery Room Air 08/29/23 11:50 MDM - Chest Pain MDM Narrative Medical decision making narrative: 23-year-old female presenting with right-sided chest pain. Vitals all within normal limits. Saturating 100% on room air. EKG per my interpretation shows normal sinus rhythm, normal axis and intervals, no ST elevations or depressions. Blood work is unremarkable. Troponin undetectable. Chest x-ray without acute abnormalities. On re-evaluation, the patient is resting comfortably. Discussed to the reassuring workup with the patient suspect musculoskeletal pain given the reproducible pain on exam in the worsening with movements. Her vitals remained normal. Feel she is safe for outpatient management. She is agreeable with this plan. Discussed appropriate supportive care and follow-up. Discharged in stable condition. Different
[2023-08-29 12:30] VITALS: BP 150/86; PULSE 85; RESP 16; O2SAT 99
[2023-08-29] MEDS: ACETAMINOPHEN 500 MG TABLET 1000 MG PO (12:47)
[2023-08-29 13:30] VITALS: BP 148/95; PULSE 77; RESP 16; O2SAT 98
[2023-08-29 14:25] VITALS: BP 104/58; PULSE 72; RESP 16; O2SAT 100
== END 2023-08-29 14:25 | disposition home or self-care (01) ==
PROVIDERS: Emergency Medicine; Emergency Provider Emergency Medicine; PCP Nurse Practitioner Family
DX: O26.891 Other specified pregnancy related conditions, first trimester (principal); R07.9 Chest pain, unspecified; O99.281 Endocrine, nutritional and metabolic diseases complicating pregnancy, first trimester; E03.9 Hypothyroidism, unspecified; Z3A.08 8 weeks gestation of pregnancy
CPT/HCPCS: 36415; 71046; 80053; 83690; 84484; 85025; 85610; 85730; 93005; 99284; A9270